=== PATIENT | female | born 1990 | race African-American/Black ===

== ENCOUNTER 2016-04-10 21:18 | Emergency (ER) | payer MEDICAID ==
[~2016-04-10] VITALS: Ht 154.9 cm; Wt 43.1 kg
[2016-04-10 22:40] LABS: Urine Bilirubin Negative (Negative); Urine Blood Negative /uL (Negative); Urine Color Yellow (Yellow); Urine Glucose Normal (Normal); Urine Ketone Negative (Negative); Urine Mucus FEW (None Seen); Urine Nitrite Negative (Negative); Urine RBC 2 /hpf (0 - 4); Urine Squamous Epithelial Cell FEW /hpf (<5); Urine Urobilinogen Normal (Negative)
[2016-04-10 23:53] VITALS: BP 115/76
== END 2016-04-11 01:37 | disposition home or self-care (01) ==
LOC: ER 21:22
DX: R51 Headache (principal); E86.0 Dehydration
CPT/HCPCS: 81001; 81025

== ENCOUNTER 2017-08-01 18:46 | Emergency (ER) | payer SELFPAY ==
[~2017-08-01] VITALS: Ht 157.5 cm; Wt 41.1 kg
[2017-08-02 02:04] VITALS: BP 149/90
[2017-08-02] MEDS ORDERED: LIDOCAINE 1% HCL (LOCAL ANESTH.) INJ 20ML MDV ONE (03:55)
== END 2017-08-02 04:21 | disposition home or self-care (01) ==
LOC: ER 18:46
DX: S13.9XXA Sprain of joints and ligaments of unspecified parts of neck, initial encounter (principal); S20.229A Contusion of unspecified back wall of thorax, initial encounter; V43.62XA Car passenger injured in collision with other type car in traffic accident, initial encounter; Y93.89 Activity, other specified; Y99.8 Other external cause status; Y92.410 Unspecified street and highway as the place of occurrence of the external cause
CPT/HCPCS: 71045; 72040; 72070; 72125; 73030; 99284; J2001

== ENCOUNTER 2019-03-10 11:40 | Emergency (ER) | payer SELFPAY ==
[~2019-03-10] VITALS: Ht 154.9 cm; Wt 40.8 kg
[2019-03-10 14:30] VITALS: BP 128/70
== END 2019-03-10 14:55 | disposition home or self-care (01) ==
LOC: ER 11:44
DX: J04.0 Acute laryngitis (principal)

== ENCOUNTER 2019-11-29 12:32 | Emergency (ER) | payer SELFPAY ==
[~2019-11-29] VITALS: Ht 154.9 cm; Wt 42.2 kg
[2019-11-29 15:01] VITALS: BP 127/91
[2019-11-29] MEDS ORDERED: METHOCARBAMOL 500 MG TAB PO ONE (15:30)
[2019-11-29] MEDS ORDERED: KETOROLAC TROMETH 60MG/2ML VIAL IM ONE (15:30)
== END 2019-11-29 16:47 | disposition home or self-care (01) ==
LOC: ER 12:32
DX: S39.012A Strain of muscle, fascia and tendon of lower back, initial encounter (principal); N39.0 Urinary tract infection, site not specified; X58.XXXA Exposure to other specified factors, initial encounter; Y93.89 Activity, other specified; Y92.89 Other specified places as the place of occurrence of the external cause; Y99.8 Other external cause status
CPT/HCPCS: 72100; 81002; 81025; 96372; 99283; J1885

== ENCOUNTER 2022-03-07 21:28 | Emergency (ER) | payer SELFPAY ==
[~2022-03-07] VITALS: Ht 157.5 cm; Wt 45.5 kg
[2022-03-07] MEDS ORDERED: IBUPROFEN 800 MG TAB PO ONE (21:45)
[2022-03-07 22:55] LABS: Urine Bacteria NONE SEEN /hpf (None Seen); Urine Blood Negative /uL (Negative); Urine Specific Gravity 1.016 (1.001-1.035); Urine WBC <1 /hpf (0 - 5)
[2022-03-08] MEDS ORDERED: IBUP600T27 PO (00:03)
[2022-03-08 00:14] VITALS: BP 95/61
== END 2022-03-08 00:16 | disposition home or self-care (01) ==
LOC: ER 21:28
DX: O26.892 Other specified pregnancy related conditions, second trimester (principal); M54.59 Other low back pain; Z3A.15 15 weeks gestation of pregnancy
CPT/HCPCS: 81001